=== PATIENT | female | born 1950 | race African-American/Black ===

== ENCOUNTER 2020-07-28 17:52 | Inpatient (IN) | payer OTHER ==
[2020-07-28] MEDS ORDERED: SODIUM CHLORIDE 3,266 ML IV ONE (19:04)
[2020-07-28] MEDS ORDERED: MAG HYDROX/AL HYDROX/SIMETH 30 ML UNIT-DOSE CUP PO ONE (19:20)
[2020-07-28] MEDS ORDERED: FAMOTIDINE 20 MG/50 ML IVPB 20 MG/50 ML MG IVPB ONE (19:20)
[2020-07-28] MEDS ORDERED: ACETAMINOPHEN 1000 MG/100 ML VIAL (NON FORMULARY) IVPB ONE (19:20)
[2020-07-28] MEDS ORDERED: LACTATED RINGERS SOLUTION 1000 ML INFUS.BAG IV ONE (19:20)
[2020-07-28] MEDS ORDERED: ONDANSETRON 4 MG/2 ML VIAL IVPUSH ONE (19:20)
[2020-07-28 20:39] LABS: BASO % 0.4 % (0-2.0); EOS % 0.4 % (0-4.5); HEMATOCRIT 34.7 % (32.4-45.2); HEMOGLOBIN 11.3 GM/dL (10.7-15.3); LYMPH % 4.7 % (8-40); MCH 30.3 pg (25.7-33.7); MCHC 32.6 g/dl (32.0-36.0); MEAN PLT VOLUME 8.3 fl (7.5-11.1); MONO % 9.1 % (3.8-10.2); NEUT % 85.4 % (42.8-82.8); PLATELET COUNT 418 K/MM3 (134-434); RBC 3.74 M/mm3 (3.60-5.2); RDW 14.3 % (11.6-15.6); WHITE BLOOD COUNT 19.9 K/mm3 (4.0-10.0)
[2020-07-28 20:45] LABS: INR 1.38 (0.83-1.09); PROTHROMBIN TIME (PATIENT) 16.8 SEC (9.7-13.0)
[2020-07-28 20:48] LABS: ACTIVATED PTT 30.3 SECONDS (25.2-36.5)
[2020-07-28 20:56] LABS: CHLORIDE 98 mmol/L (98-107); POTASSIUM 3.4 mmol/L (3.5-5.1); SODIUM 138 mmol/L (136-145)
[2020-07-28 20:59] LABS: ALBUMIN 2.3 g/dl (3.4-5.0); ANION GAP 7 MMOL/L (8-16); BLOOD UREA NITROGEN 9.3 mg/dL (7-18); CALCIUM 8.7 mg/dL (8.5-10.1); CO2 33 mmol/L (21-32); GLUCOSE,RANDOM 92 mg/dL (74-106); LIPASE 44 U/L (73-393)
[2020-07-28 21:02] LABS: CREATININE 0.8 mg/dL (0.55-1.3); SGOT/AST 17 U/L (15-37); SGPT/ALT 18 U/L (13-61)
[2020-07-28 21:04] LABS: BILIRUBIN,TOTAL 0.5 mg/dL (0.2-1)
[2020-07-28 21:05] LABS: ALK PHOS 103 U/L (45-117)
[2020-07-28] MEDS ORDERED: MAG HYDROX/AL HYDROX/SIMETH 30 ML UNIT-DOSE CUP ONE (21:06)
[2020-07-28 21:37] LABS: EPI CELLS >36 /uL (0-25.1); HYALINE CASTS 11 /uL (0-3.1); PH,URINE 5.5 (5.0-8.0); URINE APPEARANCE CLOUDY; URINE BILIRUBIN 1+ (NEGATIVE); URINE COLOR DK YELLOW; URINE GLUCOSE (UA) NEGATIVE (NEGATIVE); URINE KETONE 2+ (NEGATIVE); URINE LEUK ESTERASE 1+ (NEGATIVE); URINE NITRITE POSITIVE (NEGATIVE); URINE PROTEIN 1+ (NEGATIVE); URINE WBC 76 /uL (0-25.8)
[2020-07-28] MEDS ORDERED: ACETAMINOPHEN INJECTION 100 ML IVPB ONE (21:46)
[2020-07-28] MEDS ORDERED: MEROPENEM 1 GM in DEXTROSE 5%-WATER 100 ML IVPB ONE (22:00)
[2020-07-28] MEDS ORDERED: LORazepam 2 MG/ML SDV VIAL ONE (22:33)
[2020-07-28] MEDS ORDERED: POTASSIUM CHLORIDE TABS 20 MEQ TABLET.ER (FP) PO ONE (22:45)
[2020-07-28 23:45] LABS: URINE BACTERIA 1112.7 /uL (0-1359); URINE RBC 90.8 /uL (0-23.9); YEAST NEGATIVE (NEGATIVE)
[2020-07-29] MEDS ORDERED: MEROPENEM 1 GM VIAL (RESTRICTED TO ID) IVPB ONE ×2 (00:51→17:16)
[2020-07-29] MEDS ORDERED: POTASSIUM CHLORIDE TABS 20 MEQ TABLET.ER (FP) PO ONE (00:52)
[2020-07-29] MEDS ORDERED: ACETAMINOPHEN 1000 MG/100 ML VIAL (NON FORMULARY) IVPB PRN (01:56)
[2020-07-29 03:10] LABS: INR 1.35 (0.83-1.09); PROTHROMBIN TIME (PATIENT) 16.5 SEC (9.7-13.0)
[2020-07-29 03:13] LABS: ACTIVATED PTT 29.3 SECONDS (25.2-36.5)
[2020-07-29 06:00] VITALS: BMI 36.3
[2020-07-29] MEDS ORDERED: DEXTROSE 5%-0.45% SALINE 1,000 ML IV SCH (09:45)
[2020-07-29] MEDS ORDERED: FLU VACCINE (FLULAVAL) PF 60 MCG/0.5 ML SYRINGE 2020-2021 IM ONE (10:00)
[2020-07-29] MEDS ORDERED: PNEUMOC 13-VAL CONJ-DIP CRM/PF 0.5 ML DISP.SYRIN IM ONE (10:00)
[2020-07-29] MEDS ORDERED: DEXTROSE 5%-WATER 100 ML IVPB ONE (17:16)
[2020-07-29] MEDS ORDERED: MEROPENEM 1 GM in DEXTROSE 5%-WATER 100 ML IVPB SCH (18:00)
[2020-07-29 20:46] VITALS: BP 127/67; PULSE 57; TEMP 98.5
== END 2020-07-29 21:15 | disposition short-term general hospital (02) | DRG 444 ==
LOC: JER 17:52 → JERBED 21:46 → J8W 07-29 04:55
PROVIDERS: ADMIT Internal Medicine; ATTEND Internal Medicine
DX: K81.0 Acute cholecystitis (principal); K75.0 Abscess of liver; N39.0 Urinary tract infection, site not specified; E46 Unspecified protein-calorie malnutrition; N10 Acute pyelonephritis; K76.89 Other specified diseases of liver; E87.6 Hypokalemia; I10 Essential (primary) hypertension; E66.9 Obesity, unspecified; Z68.36 Body mass index [BMI] 36.0-36.9, adult; E88.09 Other disorders of plasma-protein metabolism, not elsewhere classified; D72.829 Elevated white blood cell count, unspecified; Z88.0 Allergy status to penicillin
CPT/HCPCS: 36415; 71045-TC-FY; 74176-TC; 74183-TC; 76705-TC; 80053; 81003; 83605; 83690; 84484; 85025; 85610; 85730; 86682; 86753; 86850; 86900; 86901; 87040; 87086; 93005; 93010; 99285-25; C9803; J0131; U0003